=== PATIENT | female | born 1990 | race African-American/Black ===

== ENCOUNTER 2017-01-07 04:20 | Emergency (ER) | payer SELFPAY ==
[2017-01-07 04:52] LABS: #Basophils 0.1 thou/uL (0.0-0.2); #Eosinphils 0.2 thou/uL (0.0-0.7); #Lymphocytes 2.6 thou/uL (1.20-3.40); #Monocytes 0.2 thou/uL (0.11-0.59); #Neutrophils 2.5 thou/uL (1.40-6.50); %Basophils 1.1 % (0.0-1.0); %Eosinophils 3.3 % (0.0-10.0); %Monocytes 4.1 % (0.0-10.0); Hematocrit 40.2 % (36.0-47.0); Mean Platelet Volume 6.7 fL (7.4-10.4); Red Blood Cell (RBC) Count 4.62 mill/uL (4.20-5.40); White Blood Cell (WBC) Count 5.6 thou/uL (4.8-10.8)
[2017-01-07 05:12] LABS: ALT (SGPT) 21 U/L (8-55); AST (SGOT) 19 U/L (5-34); Alkaline Phosphatase 57 U/L (40-150); Anion Gap 13 mmol/L (10-20); BUN (Urea Nitrogen) 6 mg/dL (7.0-18.7); Bilirubin, Total 0.4 mg/dL (0.2-1.2); Calc. Creatinine Clearance 0 mL/min (70-130); Carbon Dioxide 23 mmol/L (22-29); Chloride 108 mmol/L (98-107); Estimated GFR-MDRD Greater than 90; Globulin 3.4 g/dL (2.4-3.5); Lipase 39 U/L (8-78); Protein, Total 7.7 g/dL (6.0-8.3)
[2017-01-07 05:15] LABS: Bilirubin Negative (Negative); Blood, Urine Negative (Negative); Glucose, Urine (Dipstick) Negative (Negative); Ketone, Urine Negative (Negative); Nitrite Negative (Negative); Protein, Urine (Dipstick) Negative (Neg-Trace); Urobilinogen 0.2 mg/dL (0.2-1.0)
== END 2017-01-07 06:14 | disposition home or self-care (01) ==
LOC: ERS 04:20
DX: R10.32 Left lower quadrant pain (principal); R10.31 Right lower quadrant pain
CPT/HCPCS: 80053; 81003; 81025; 83690; 85025; 86140; 99284

== ENCOUNTER 2024-11-25 20:41 | Emergency (ER) | payer OTHER, SELFPAY ==
[2024-11-26 00:13] LABS: #Basophils Less than 0.03 10x3/uL (0.0-0.2); #Eosinophils 0.05 10x3/uL (0.0-0.7); #Monocytes 0.32 10x3/uL (0.11-0.59); #Neutrophils 5.25 10x3/uL (1.40-6.50); %Basophils 0.2 % (0.0-1.0); %Eosinophils 0.8 % (0.0-10.0); %Lymphocytes 10.2 % (21.0-51.0); %Monocytes 5.1 % (0.0-10.0); %Neutrophils 83.4 % (42.0-75.0); Hematocrit 37.0 % (36.0-47.0); Hemoglobin 12.0 g/dL (12.0-16.0); Mean Corpuscular Hemoglobin 27.1 pg (27.0-31.0); Mean Corpuscular Volume 83.5 fL (78.0-98.0); Platelet Count 432 10x3/uL (130-400); Red Blood Cell (RBC) Count 4.43 mill/uL (4.20-5.40); White Blood Cell (WBC) Count 6.29 10x3/uL (4.8-10.8)
[2024-11-26 00:41] LABS: BHCG - Serum Negative (NEGATIVE); Pregs Control Background? CLEAR/WHITE (CLR/WHITE); Pregs Control Bar Appear? YES (CONTROL BAR)
[2024-11-26 00:45] LABS: ALT (SGPT) 14 U/L (Less than 34); AST (SGOT) 20 U/L (11-34); Albumin 3.9 g/dL (3.1-4.5); Alkaline Phosphatase 63 U/L (40-110); Anion Gap 11 mmol/L (10-20); BUN (Urea Nitrogen) 8 mg/dL (7.0-18.7); Bilirubin, Total 0.6 mg/dL (0.3-1.2); Calc. Creatinine Clearance 0 mL/min (70-130); Calcium 8.9 mg/dL (7.8-10.44); Carbon Dioxide 22 mmol/L (22-29); Chloride 104 mmol/L (98-107); Globulin 3.3 g/dL (2.4-3.5); Glucose 105 mg/dL (70-105); Lipase 31 U/L (8-78); Potassium 3.7 mmol/L (3.5-5.1); Sodium 133 mmol/L (136-145)
[2024-11-26] MEDS ORDERED: Ondansetron PF 4 MG/2 ML Vial ONE (01:19)
== END 2024-11-26 02:25 | disposition home or self-care (01) ==
LOC: ERS 20:41
DX: K52.9 Noninfective gastroenteritis and colitis, unspecified (principal); Z55.6 Problems related to health literacy
CPT/HCPCS: 36415; 80053; 83690; 84703; 85025; 96372; 96374; J2405